=== PATIENT | male | born 1955 | race Caucasian/White ===

== ENCOUNTER 2017-11-09 14:53 | Inpatient (IN) | payer OTHER ==
[~2017-11-09] VITALS: Ht 185.4 cm; Wt 102.1 kg
--- NOTE | ~2017-11-09 | H ---
[facility] [place] [address] HISTORY AND PHYSICAL Name: MELIZA CHAU Room #: 352-P ADM IN M.R.#: [id number] Admission: 11/09/17 Attend Phys: Jean Roman Discharge: Date of : 57 Report #: [id number] THIS REPORT FOR: //name// CC: Juan FRANKLIN unknown DATE OF SERVICE: 11/09/2017 CHIEF COMPLAINT: Nausea, vomiting. HISTORY OF PRESENT ILLNESS: The patient is a 62-year-old gentleman transferred from [facility] for evaluation of persistent nausea and vomiting. All the history is obtained by speaking to his . He suffered what sounds to be an embolic stroke in July of this year. He was initially treated with TPA at [facility], which failed. He then transferred to [facility] and they attempted embolectomy, which he said was unsuccessful as well. Somewhere in that course due to the stroke developed respiratory failure and was placed on the ventilator. He underwent a craniotomy as a result of the stroke while at . He subsequently had a PEG tube placed and after medical stabilization, he then transferred to [facility] for weaning from the ventilator, which was successful. His reports that he was tolerating capping trials at times and was on room air. Around the first week of September, he returned at to have his skull reimplanted for a second surgery. He tolerated that without incident per her report and he then transferred to rehab of [facility]. He was there for about 3 weeks, but was unable to maintain the 3 hours of therapy progress and then transferred to [facility] about a week or 10 days ago. His reports that he has had off and on nausea and vomiting during his stay at both [facility] and [facility]. However, [facility] has reported that he has had vomiting nearly on a daily basis for several days. The nurses also reported that in the last day it appeared to be dark or brown in color. The nurse here at the bedside reported that he vomited when transferring from the stretcher to the hospital bed and appeared more just bile color. PAST MEDICAL HISTORY: As above. PAST SURGICAL HISTORY: As above. FAMILY HISTORY: Unknown. SOCIAL HISTORY: No known chronic alcohol or tobacco use. ALLERGIES: None. MEDICATIONS: Please see the list from the skilled facility. [address] [address] HISTORY AND PHYSICAL Name: MELIZA CHAU Room #: 352-P [facility] IN M.R.#: [id number] Admission: 11/09/17 Attend Phys: Jean Roman Discharge: Date of : 57 Report #: [id number] REVIEW OF SYSTEMS: He is unable to give review. PHYSICAL EXAMINATION: VITAL SIGNS: Per the nursing note. GENERAL: He opens his eyes to his name, but not much other response. HEAD AND NECK: Shows a tracheostomy tube in place. LUNGS: Clear anteriorly. HEART: Regular. ABDOMEN: Soft, normoactive bowel sounds. There is a PEG tube in place. There is a healed right mid abdomen incision with sutures in place. EXTREMITIES: No cyanosis, clubbing or edema. NEUROLOGIC: He has right hemiplegia. ASSESSMENT: 1. Nausea, vomiting. 2. Cerebrovascular disease. 3. Right hemiplegia. 4. Chronic hypoxic respiratory failure. 5. Tracheostomy dependent. PLAN: Continue his basic medications and transfer including his Keppra for seizures. We will ask the GI Service to assess the nausea. He may need an endoscopy or further abdominal imaging. I will ask the Pulmonary Service to follow his stay as well. His does report he has known severe motion sickness symptoms as long as she has known him. So we will see if there is any other acute pathology contributing to his current status. <ELECTRONICALLY SIGNED> By: Leonard He MD 11/10/17 1115 1648 1742 Leonard He MD /nt
--- NOTE | ~2017-11-09 | D ---
[facility] [place] [address] DISCHARGE SUMMARY Name: MELIZA CHAU Room #: 352-P [facility] IN M.R.#: [id number] Admission: 11/09/17 Attend Phys: Jean Roman Discharge: 11/15/17 Date of : 57 Report #: [id number] THIS REPORT FOR: //name// CC: Juan FRANKLIN unknown DATE OF SERVICE: 11/15/2017 FINAL DIAGNOSES: 1. Erosive esophagitis. 2. Chronic hypoxic respiratory failure. 3. Tracheostomy dependent. 4. Cerebrovascular disease. 5. Chronic right hemiparesis. 6. Hypertension. HOSPITAL COURSE: The patient was admitted from [facility] for evaluation of her persistent nausea and vomiting. He was placed on bowel rest with supportive measures. GI Service followed his stay. Ultimately, EGD was performed. This revealed erosive esophagitis. He was treated medically. There were no other signs of bleeding, and he remained stable during the course of his stay. Tube feeding was reinitiated when he was tolerating a without incident. He did have some episodes where he is either coughing or producing up oral secretions that required some oral suctioning, but he had no documented regurgitation of tube feed nor any residuals. PHYSICAL EXAMINATION: GENERAL: On the day of discharge, he was awake, in his usual neurologic state with just minimal response to bedside assessment, which is his baseline: VITAL SIGNS: Temperature was afebrile with a pulse in the 60s. Blood pressure 134/94, ranging to 119/80. O2 sat was 99% on trach shield. LUNGS: Clear. HEART: Regular. ABDOMEN: Soft, normoactive bowel sounds. EXTREMITIES: No edema. DISPOSITION: He will return to his care home facility. I have signed all his transfer orders, medications. He will continue n.p.o. status with tube feeding. Follow up been to the care of Dr. Asif Arroyo. I will repeat his lab work in 3 days. <ELECTRONICALLY SIGNED> By: Leonard He MD 11/23/17 0836 1134 1216 Leonard He MD /nt
[2017-11-09 16:04] VITALS: BP 149/96
[2017-11-09] MEDS ORDERED: REGLAN 10 MG TA10 MG PO (16:17)
[2017-11-09] MEDS ORDERED: ASPIR-TRIN325 MG PO (16:18)
[2017-11-09] MEDS ORDERED: PEPCID20 MG PO (16:19)
[2017-11-09] MEDS ORDERED: KEPPRA750 MG PO (16:19)
[2017-11-09] MEDS ORDERED: POTASSIUM20 PO (16:21)
[2017-11-09] MEDS ORDERED: LIPITOR 20 MG T20 M1 PO (16:21)
[2017-11-09] MEDS ORDERED: TYLENOL325 MG PO (16:22)
[2017-11-09] MEDS ORDERED: ZOFRAN ODT4 MG BUCCAL (16:24)
[2017-11-09] MEDS ORDERED: SENNA8.6 MG PER TUBE (16:25)
[2017-11-09 17:04] LABS: HEMATOCRIT 41.2 % (42.0-52.0); HEMOGLOBIN 13.7 gm/dL (14.0-18.0); MCH 30.8 pg (26.0-34.0); MCHC 33.1 g/dL (28.0-37.0); MCV 93.1 fL (80.0-100.0); RBC 4.43 mil/uL (4.50-6.00); WBC 8.7 thou/uL (4.0-11.0)
[2017-11-09 17:15] LABS: ALBUMIN 3.3 g/dL (3.4-5.0); CALCIUM 9.1 mg/dL (8.5-10.1); CREATININE 0.8 mg/dL (0.7-1.3); POTASSIUM 4.2 mmol/L (3.5-5.1); TOTAL BILIRUBIN 0.3 mg/dL (<0.1-1.0); TOTAL PROTEIN 6.9 g/dL (6.4-8.2)
[2017-11-09 17:34] LABS: BE(vivo) 3.5 mmol/L (-2 to +3); HCO3 27.5 mmol/L (22.0-26.0); PCO2 39.6 mmHg (35.0-45.0); PO2 78.9 mmHg (80.0-100.0); pH 7.459 (7.360-7.450); sO2 96.2 % (92.0-98.0)
[2017-11-09 18:34] LABS: AMYLASE 24 U/L (25-115); LIPASE 66 U/L (73-393)
[2017-11-09 19:02] LABS: HEMATOCRIT 40.5 % (42.0-52.0); HEMOGLOBIN 13.6 gm/dL (14.0-18.0)
[2017-11-09 19:43] VITALS: BP 143/92
[2017-11-10 00:10] VITALS: BP 137/93
[2017-11-10 00:48] LABS: HEMATOCRIT 36.4 % (42.0-52.0); HEMOGLOBIN 11.9 gm/dL (14.0-18.0)
[2017-11-10 04:20] VITALS: BP 139/90
[2017-11-10 07:44] VITALS: BP 141/88
[2017-11-10 12:22] VITALS: BP 138/70
[2017-11-10 16:53] VITALS: BP 131/91
[2017-11-10 20:00] VITALS: BP 123/83
[2017-11-11 04:00] VITALS: BP 137/91
[2017-11-11 08:09] VITALS: BP 141/90
[2017-11-11 16:39] VITALS: BP 145/101
[2017-11-11 19:13] VITALS: BP 124/101
[2017-11-11 23:50] VITALS: BP 132/85
[2017-11-12 03:50] VITALS: BP 129/91
[2017-11-12 06:35] LABS: CALCIUM 9.1 mg/dL (8.5-10.1); CREATININE 0.7 mg/dL (0.7-1.3); POTASSIUM 3.6 mmol/L (3.5-5.1)
[2017-11-12 07:44] VITALS: BP 124/84
[2017-11-12 12:09] VITALS: BP 111/78
[2017-11-12 16:22] VITALS: BP 124/87
[2017-11-12 19:20] VITALS: BP 129/89
[2017-11-13 04:10] VITALS: BP 137/92
[2017-11-13 07:36] VITALS: BP 134/93
[2017-11-13 11:32] VITALS: BP 125/82
[2017-11-13 15:25] VITALS: BP 126/80
[2017-11-13 19:05] VITALS: BP 139/91
[2017-11-14 04:00] VITALS: BP 136/90
[2017-11-14 07:28] VITALS: BP 145/97
[2017-11-14 10:56] LABS: CALCIUM 8.9 mg/dL (8.5-10.1); CREATININE 0.6 mg/dL (0.7-1.3)
[2017-11-14 11:29] VITALS: BP 144/100
[2017-11-14 11:30] VITALS: BP 133/79
[2017-11-14 12:58] LABS: HEMATOCRIT 43.1 % (42.0-52.0); HEMOGLOBIN 14.2 gm/dL (14.0-18.0); MCHC 32.9 g/dL (28.0-37.0); MCV 94.4 fL (80.0-100.0); RBC 4.56 mil/uL (4.50-6.00); RDW 15.5 % (10.5-14.5)
[2017-11-14 15:20] VITALS: BP 138/85
[2017-11-14 19:50] VITALS: BP 121/86
[2017-11-15 04:10] VITALS: BP 119/80
[2017-11-15 07:39] VITALS: BP 135/94
[2017-11-15] MEDS ORDERED: CARVEDILOL12.5 MG PO (11:24)
[2017-11-15] MEDS ORDERED: ANTIVERT25 MG PO (11:25)
[2017-11-15] MEDS ORDERED: KEPPRA 100100 MG/M1 PER TUBE (11:25)
[2017-11-15] MEDS ORDERED: OMEPRAZOLE 20 M20 MG PER TUBE (11:25)
[2017-11-15] MEDS ORDERED: ASPIR 8181 MG PER TUBE (11:25)
[2017-11-15] MEDS ORDERED: METOCLOPRA10 MG/101 PER TUBE (11:26)
== END 2017-11-15 14:35 | DRG 381 ==
LOC: 3W 14:53
PROVIDERS: Internal Medicine Geriatric Medicine; Internal Medicine Pulmonary Disease
PROC: 0DB68ZX Excision of Stomach, Via Natural or Artificial Opening Endoscopic, Diagnostic (ICD-10-PCS; principal; 2017-11-11)
DX: K22.11 Ulcer of esophagus with bleeding (principal); J96.11 Chronic respiratory failure with hypoxia; K57.32 Diverticulitis of large intestine without perforation or abscess without bleeding; E78.5 Hyperlipidemia, unspecified; E11.9 Type 2 diabetes mellitus without complications; D64.9 Anemia, unspecified; I48.91 Unspecified atrial fibrillation; I10 Essential (primary) hypertension; Z93.1 Gastrostomy status; I25.2 Old myocardial infarction; Z86.711 Personal history of pulmonary embolism; Z93.0 Tracheostomy status; Z79.82 Long term (current) use of aspirin; Z79.899 Other long term (current) drug therapy; Z86.718 Personal history of other venous thrombosis and embolism; Z86.73 Personal history of transient ischemic attack (TIA), and cerebral infarction without residual deficits
CPT/HCPCS: 10879; 62110; 62900; 70005

== ENCOUNTER → 2017-11-29 | Outpatient (CLI) | payer OTHER ==
[~2017-11-29] MED LIST: ANTIVERT25 MG PO; ASPIR 8181 MG PER TUBE; ASPIR-TRIN325 MG PO; CARVEDILOL12.5 MG PO; CLONIDINE1 EACH TRANSDERM; HEPARIN 5,5000 UNIT3 SUBQ; HYDRALAZINE 10M10 MG PER TUBE; KEPPRA 100100 MG/M1 PER TUBE; KEPPRA750 MG PER TUBE; KEPPRA750 MG PO; LEVAQUIN 500 M500 M2 PO; LIPITOR 20 MG T20 M1 PO; LISINOPRIL10 MG PER TUBE; METOCLOPRA10 MG/101 PER TUBE; MINERIN CREME454 GM TOP; NORVASC10 MG PER TUBE; NYAMYC15 GM TOP; NYSTOP TOP; OMEPRAZOLE 20 M20 MG PER TUBE; OMEPRAZOLE40 MG PER TUBE; ONDANSETRON HCL4 M2 PO; PACERONE 200 M200 M1 PER TUBE; PEPCID20 MG PO; POTASSIUM20 PO; REGLAN 10 MG TA10 MG PO; SENNA8.6 MG PER TUBE; TRANSDERM-SCOP1 EACH TOP; TYLENOL325 MG PO; VITAL CAL PER TUBE; ZOFRAN ODT4 MG BUCCAL
[2017-11-29 11:55] VITALS: BP 160/104
== END | disposition home or self-care (01) ==
LOC: SPEC 09:06
DX: K94.23 Gastrostomy malfunction (principal); K21.9 Gastro-esophageal reflux disease without esophagitis; I10 Essential (primary) hypertension; I48.92 Unspecified atrial flutter; I48.91 Unspecified atrial fibrillation; E11.9 Type 2 diabetes mellitus without complications; I25.2 Old myocardial infarction; Z98.890 Other specified postprocedural states; Z86.718 Personal history of other venous thrombosis and embolism; Z86.711 Personal history of pulmonary embolism; Z79.01 Long term (current) use of anticoagulants; Z86.73 Personal history of transient ischemic attack (TIA), and cerebral infarction without residual deficits; Z79.899 Other long term (current) drug therapy; Z79.82 Long term (current) use of aspirin

== ENCOUNTER 2017-12-10 05:34 | Inpatient (IN) | payer OTHER ==
[~2017-12-10] VITALS: Ht 185.4 cm; Wt 104.3 kg
--- NOTE | ~2017-12-10 | O ---
[facility] [place] [address] OPERATIVE REPORT Name: MELIZA CHAU Room #: 456-P [facility] [place].#: [id number] Admission: 12/10/17 Attend Phys: Phillip Mireles MD Discharge: Date of : 57 Report #: [id number] THIS REPORT FOR: //name// CC: Asif Mireles DATE OF SERVICE: 12/10/2017 PREOPERATIVE DIAGNOSES: Status post cerebrovascular accident, status post PEG placement with persistent nausea and vomiting needing J-tube placement. POSTOPERATIVE DIAGNOSES: Status post cerebrovascular accident, status post PEG placement with persistent nausea and vomiting needing J-tube placement. PROCEDURES PERFORMED: Laparoscopic J-tube placement. ANESTHESIA: General. SURGEON: Phillip Mireles MD. COMPLICATIONS: None. ESTIMATED BLOOD LOSS: 5 mL. DESCRIPTION OF PROCEDURE: With the patient under general anesthesia, his trach which cuffless was changed to a cuffed trach for the surgery that was performed by myself without difficulty. Abdomen was then prepped and draped in sterile fashion. IV antibiotic was administered. Timeout was performed. A 2-cm curvilinear incision was made infraumbilically, fascia identified. Fascia was then grasped with hemostats and then opened under visualization. 0 Vicryl suture was placed on the fascia edges for retraction. Veress needle was then placed through the abdominal cavity and the insufflation was started with CO2. The insufflation did not seem to create air diffusely. It turned out that the needle was in the properitoneal space. With the 10-mm scope placed in a viewing trocar, I was able to go through the defect between the fascia that I already opened through the peritoneum. Bowel was identified underneath this. CO2 was then placed through the 11-mm trocar. The abdominal cavity at that point distended up nicely. A 5-mm trocar was placed in the epigastrium and another 5-mm trocar placed in the left lower quadrant fairly close to the umbilical level. A 5-mm scope was then used. This then showed the initial CO2 placement in the properitoneal fat, which the patient did have a fairly generous . No harm to underlying tissue. The small bowel was examined. The ligament of Treitz was found. Small bowel about a foot and a half distal to the ligament of Treitz was used for jejunostomy tube. On the skin side, a dalton shaped was drawn out for the T-fasteners. The center part of it was drawn for the tube [facility] [address] [place] [address] OPERATIVE REPORT Name: MELIZA CHAU Room #: 456-P [facility] M.R.#: [id number] Admission: 12/10/17 Attend Phys: Phillip Mireles MD Discharge: Date of : 57 Report #: [id number] insertion. The T-fasteners were placed without difficulty started at the distal corner in the midline of the antimesenteric surface of bowel and at the 3 and 9 o'clock position of the dalton. This was placed in lateral wall and the T-fasteners all went in without difficulty. The T-fastener did not pop through anything. A fourth T-fastener was then placed at 6 o'clock position. With the bowel lifted anteriorly and the CO2 in the abdominal cavity reduced, a small incision was made with 11 blade. The introducer needle was then placed through rest of the wall and under visualization placed into the bowel. With the bowel pulled up with the T-fasteners, I was pretty certain that that that was in the bowel lumen. I injected air through the needle and the small bowel did distend up well. Unfortunately, the bowel that was distended up did not stay distended because of the movement of the air downstream. I couple times to make sure that needle was placed in the lumen. Wire was then placed down. I was able to get the wire down through the needle about 4 inches downstream, but then I could not manipulate the wire to go down any further. A serial dilator was then used. This dilated the skin and subcutaneous tissue, the wall and then the opening in the jejunum. After serial dilatation, the Peel-Apart sheath was then left in the bowel and the dilator was removed. The feeding tube was then placed inside the Peel-Apart sheath. The J-tube was held in place and the Peel-Apart sheath was divided. This left the bowel in the jejunum. I could see the tip of the feeding tube and again I did try to maneuver it further downstream. There was a loop proximally. This was pulled back and I thought it had straightened out, but then every time I tried to advanced it, that loop persisted. At this point, I decided just to leave the bowel in this location, let the peristalsis take it further down on its own. When I ran the small bowel, I was pretty certain that with the angle of the T-fasteners down pointing into the distal direction. The CO2 was then let down and the jejunum was then pulled up against the abdominal wall and the T-fastener was then tightened down using the locking device. I could see the jejunum sealing around the J-tube. A dye was then placed inside the jejunostomy feeding port and the dye was injected under fluoroscopy. I can see the dye within the lumen of the bowel. Again, there is a proximal loop that is about 4 inches in length. Likely this loop was straightened out with peristalsis. There is a buttress or support button on the tube. This was slid down to the skin level. 0 silk was tied on this button to secure it to the feeding tube that it is wrapping around. Then, 2-0 nylon suture was then used to fasten down the buttress at 3 separate sites. Saline was used to flush through the tube and there is no resistance flushing the tube. The fascial defect of the umbilicus was then closed with [id number] 0 Vicryl. Skin was irrigated, closed with 5-0 PDS. Steri-Strip and Band-Aids applied to laparoscopic port site. 4 x 4 was then placed over the J-tube site and the tube was then coiled and held in place by 2 medium Op-Site. The patient tolerated the procedure well and taken to recovery room. In the recovery room, the cuffed trach was then changed out to a new cuffless trach. The patient tolerated that procedure well. The patient's PEG tube was left in place. I have concern about giving medications through the J-tube. Since the J-tube is 12-Omani smaller than the PEG tube, I am afraid that the medication which is [address] [address] OPERATIVE REPORT Name: MELIZA CHAU Room #: 456-P [facility] M.R.#: [id number] Admission: 12/10/17 Attend Phys: Phillip Mireles MD Discharge: Date of : 57 Report #: [id number] being crushed will clog up the tubing. I recommend at this point keep giving him his pills through the PEG tube with a little bit of water. He should be able to start feedings tomorrow. At the end of the procedure, Charisse, his was called and procedure discussed with her. By: 2215 2350 Phillip Mireles MD /nt
--- NOTE | ~2017-12-10 | EKG ---
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: STEPH : 1955 Requested By: Phillip Mireles Order Number: [id number] MD: Won Hensley Measurements Intervals [place] Rate: 69 P: 55 [place]: QRS: -16 QRSD: 105 T: 12 QT: 412 QTc: 442 Interpretive Statements Normal sinus rhythm Borderline repolarization abnormality Artifact in lead(s) I,II,III,aVR,aVL,aVF,V1,V2 No previous ECG available for comparison Electronically Signed On 12-10-2017 16:28:27 CDT by Won Hensley [email or web address] <ELECTRONICALLY SIGNED> By: Won Hensley MD, [facility] 12/10/17 1628 1020 1020 Won Hensley MD, [facility] /EPI
[~2017-12-10 05:34] MED LIST changes: -CLONIDINE1 EACH TRANSDERM; -LEVAQUIN 500 M500 M2 PO
[2017-12-10 11:25] VITALS: BP 137/87
[2017-12-10 15:58] VITALS: BP 129/91
[2017-12-10 19:29] VITALS: BP 119/86
[2017-12-11 04:43] VITALS: BP 121/87
[2017-12-11 08:26] VITALS: BP 124/73
[2017-12-11 16:24] VITALS: BP 117/66
[2017-12-11 21:20] VITALS: BP 134/79
[2017-12-12 05:12] VITALS: BP 151/97
[2017-12-12 07:51] VITALS: BP 124/91
[2017-12-12 15:50] VITALS: BP 113/79
[2017-12-12 20:30] VITALS: BP 136/73
[2017-12-13 05:04] VITALS: BP 108/69
[2017-12-13 08:20] VITALS: BP 123/86
[2017-12-13 15:45] VITALS: BP 117/62
[2017-12-13 20:50] VITALS: BP 109/70
[2017-12-14 03:50] VITALS: BP 138/80
[2017-12-14 07:38] VITALS: BP 121/79
[2017-12-14 15:13] VITALS: BP 119/74
== END 2017-12-14 18:30 | DRG 65 ==
LOC: TBA 05:34 → OR 05:34 → 4W 15:38 → OR 15:39 → 4W 15:39
PROC: 0DHA3UZ Insertion of Feeding Device into Jejunum, Percutaneous Approach (ICD-10-PCS; principal; 2017-12-10)
DX: I63.9 Cerebral infarction, unspecified (principal); G81.91 Hemiplegia, unspecified affecting right dominant side; J96.10 Chronic respiratory failure, unspecified whether with hypoxia or hypercapnia; I25.10 Atherosclerotic heart disease of native coronary artery without angina pectoris; I48.91 Unspecified atrial fibrillation; R11.2 Nausea with vomiting, unspecified; Z79.82 Long term (current) use of aspirin; Z79.899 Other long term (current) drug therapy
CPT/HCPCS: 10047; 50010; 50101; 50411; 50555; 50558; 53307; 53310; 56524; 56525; 56526; 57144; 57145; 62110; 62900; 70005

== ENCOUNTER 2018-01-11 13:13 | Inpatient (IN) | payer OTHER ==
[~2018-01-11] VITALS: Ht 185.4 cm; Wt 94.8 kg
--- NOTE | ~2018-01-11 | H ---
[facility] [place] [address] HISTORY AND PHYSICAL Name: MELIZA CHAU Room #: 352-P ADM IN M.R.#: [id number] Admission: 01/11/18 Attend Phys: Jean Roman Discharge: Date of : 57 Report #: [id number] THIS REPORT FOR: //name// CC: Juan Arroyo DATE OF SERVICE: 01/11/2018 CHIEF COMPLAINT: PEG tube malfunction. HISTORY OF PRESENT ILLNESS: The patient is a 62-year-old gentleman from [facility]. He was admitted to the hospital for evaluation of his feeding tube. In July of this year, he suffered an embolic stroke per the reports, which has left him with significant right hemiparesis, aphasia, dysphagia and respiratory failure. Somewhere along the way, he was able to wean from the ventilator and spent some time in various rehab units and/or LTAC facilities. He initially was treated with TPA at [facility] and then transferred to for an attempted embolectomy. At , he had a PEG tube placed. Previously, he had had difficulties with persistent nausea and vomiting and had difficulty tolerating his tube feeding. He was admitted here in November for nausea, vomiting. At that point, GI service adjusted the tube feed product rate and added antiemetics including Reglan, which seemed to control the symptoms. He then transferred back to his skilled facility where he had clog of the tube. This required another admission earlier in December of this year where he had a surgically placed J feeding tube by Dr. Mireles. Now apparently, the feeding tube in the right mid abdomen has developed a rupture in the tube itself and is nonfunctioning. He is admitted to have it replaced. The other concern at this point is whether he can wean from the tracheostomy tube and be decannulated. PAST MEDICAL HISTORY: Cerebrovascular accident with failed embolectomy in July of this year, right hemiparesis, aphasia, dysphagia, chronic respiratory failure, tracheostomy dependent, hypertension. He has had complications with his feeding tubes. PAST SURGICAL HISTORY: Unknown. FAMILY HISTORY: Unknown. SOCIAL HISTORY: Unknown other than he was . ALLERGIES: Unknown. MEDICATIONS: Please see the nursing list. REVIEW OF SYSTEMS: He is unable to give a review. OBJECTIVE: [address] [address] HISTORY AND PHYSICAL Name: MELIZA CHAU Room #: 352-P [facility] IN M.R.#: [id number] Admission: 01/11/18 Attend Phys: Jean Roman Discharge: Date of : 57 Report #: [id number] VITAL SIGNS: Temperature 37, pulse 79, respirations 19, blood pressure 161/102. GENERAL: He is asleep, but opens his eyes, resting in bed. He moves his left arm to shake hands. HEAD AND NECK: Unremarkable other than trach tube in place. LUNGS: Clear. HEART: Regular. ABDOMEN: Soft, normoactive bowel sounds. EXTREMITIES: There is a 3-port feeding tube in the right upper mid abdomen labeled a GJ tube. There is a second feeding tube in the left mid abdomen that is labeled as a J-tube. EXTREMITIES: Show no edema. NEUROLOGIC: He has right hemiparalysis. LABORATORY REVIEW: ABG, chemistry, CBC were unremarkable. KUB notes the presence of an IVC filter. There is a J-tube in the left lower quadrant. Chest x-ray shows some atelectasis. ASSESSMENT: 1. Malfunctioning feeding tube. 2. Chronic hypoxic respiratory failure. 3. Tracheostomy tube dependent. 4. Cerebrovascular disease with prior stroke in July of this year. 5. Right hemiplegia. 6. Chronic aphasia. 7. Chronic dysphagia. 8. Hypertension. PLAN: For now, he will be n.p.o. with no tube feeding. I have asked Dr. Mireles to reassess the tube. Speaking to the skilled nursing, it appears that the tubing split while they were trying to flush his tube feeding. Medicines will be held. I have ordered IV Keppra and we will order some IV patch, any antihypertensive medication pending replacement of a working feeding tube. The other concern at this point is whether he can be decannulated. I will ask the Pulmonary service to see him. <ELECTRONICALLY SIGNED> By: Leonard He MD 01/12/18 0847 1653 1722 Leonard He MD /nt
--- NOTE | ~2018-01-11 | D ---
[facility] [place] [address] DISCHARGE SUMMARY Name: MELIZA CHAU Room #: 352-P [facility] IN M.R.#: [id number] Admission: 01/11/18 Attend Phys: Jean Roman Discharge: Date of : 57 Report #: [id number] THIS REPORT FOR: //name// CC: Juan Arroyo FINAL DIAGNOSES: 1. PEG tube malfunction. 2. Chronic hypoxic respiratory failure. 3. Tracheostomy dependence. 4. Hypertension. 5. Cerebrovascular disease. 6. Chronic right hemiplegia. 7. Hypokalemia. 8. Aphasia. 9. Dysphagia. HOSPITAL COURSE: The patient was admitted for evaluation of a nonfunctioning PEG tube, which has a gastric and jejunostomy port. Unfortunately, the tube split and was nonfunctional Dr. Mireles arranged for Interventional Radiology to exchange both tubes as he has an old jejunostomy tube as well. Please see the separately dictated IR report. He was tolerating tube feed without incident. POSTPROCEDURE: Medications were adjusted to a clonidine patch to try to avoid medications being put through the tube in hopes of reducing the risk of problems in the future. This seemed to control his blood pressure. Pulmonary Service followed him as well. They did not feel that he was a candidate for decannulation at this point as his mental status was marginal along with a weak cough and still nonverbal, even with a Passy-Seale valve. PHYSICAL EXAMINATION: GENERAL: On the day of discharge, he was resting in bed. VITAL SIGNS: Temperature 37, pulse 51, respirations blood pressure 136/85 and O2 sat 100% on humidified trach air. LUNGS: Clear. HEART: Regular. ABDOMEN: Soft, normoactive bowel sounds. EXTREMITIES: No edema. DISPOSITION: He will return to his Nursing Center with a DuoNeb, amiodarone, Lipitor, clonidine patch, lisinopril 10 mg twice a day, along with aspirin and Keppra 750 mg b.i.d. and scopolamine patch and Reglan 5 mg q.i.d. <ELECTRONICALLY SIGNED> By: Leonard He MD 01/14/18 1607 1158 1301 Leonard He MD /nt
[2018-01-11 14:12] VITALS: BP 148/104
[2018-01-11 15:24] LABS: HEMATOCRIT 39.5 % (42.0-52.0); HEMOGLOBIN 13.9 gm/dL (14.0-18.0); MCH 31.1 pg (26.0-34.0); MCHC 35.3 g/dL (28.0-37.0); MCV 88.2 fL (80.0-100.0); RBC 4.47 mil/uL (4.50-6.00); RDW 14.6 % (10.5-14.5); WBC 7.8 thou/uL (4.0-11.0)
[2018-01-11 15:30] LABS: CALCIUM 8.9 mg/dL (8.5-10.1); CREATININE 0.9 mg/dL (0.7-1.3); POTASSIUM 3.5 mmol/L (3.5-5.1)
[2018-01-11 15:49] VITALS: BP 157/102
[2018-01-11 16:42] LABS: BE(vivo) 5.4 mmol/L (-2 to +3); HCO3 29.8 mmol/L (22.0-26.0); PCO2 42.8 mmHg (35.0-45.0); PO2 79.7 mmHg (80.0-100.0); pH 7.461 (7.360-7.450); sO2 96.3 % (92.0-98.0)
[2018-01-11 19:06] VITALS: BP 135/85
[2018-01-11 23:48] VITALS: BP 122/82
[2018-01-12 03:55] VITALS: BP 127/90
[2018-01-12 08:23] VITALS: BP 115/85
[2018-01-12 17:31] VITALS: BP 133/85
[2018-01-12 20:00] VITALS: BP 147/95
[2018-01-13] VITALS (11 sets, daily range): BP systolic 117–169; BP diastolic 83–896
[2018-01-13 06:07] LABS: CALCIUM 8.3 mg/dL (8.5-10.1); CREATININE 0.9 mg/dL (0.7-1.3); POTASSIUM 3.3 mmol/L (3.5-5.1)
[2018-01-14 04:50] VITALS: BP 125/82
[2018-01-14 06:29] LABS: CALCIUM 8.2 mg/dL (8.5-10.1); CREATININE 0.7 mg/dL (0.7-1.3)
[2018-01-14 07:32] VITALS: BP 138/86
[2018-01-14 11:00] VITALS: BP 136/85
[2018-01-14] MEDS ORDERED: CLONIDINE1 EACH TRANSDERM (11:20)
[2018-01-14] MEDS ORDERED: METOCLOPRA10 MG/101 PER TUBE (11:21)
[2018-01-14] MEDS ORDERED: PACERONE 200 M200 M1 PER TUBE (11:58)
[2018-01-14] MEDS ORDERED: LISINOPRIL10 MG PER TUBE ×2 (11:58→16:09)
[2018-01-14] MEDS ORDERED: LIPITOR 20 MG T20 M1 PO (11:58)
[2018-01-14 15:57] VITALS: BP 133/83
[2018-01-14 19:39] VITALS: BP 126/71
[2018-01-15 04:20] VITALS: BP 126/87
[2018-01-15 07:46] VITALS: BP 141/86
[2018-01-15 12:11] VITALS: BP 140/89
[2018-01-15 16:47] VITALS: BP 126/83
[2018-01-15 19:39] VITALS: BP 135/88
[2018-01-16 05:11] VITALS: BP 177/85
[2018-01-16 07:42] VITALS: BP 129/86
[2018-01-16 11:28] VITALS: BP 133/86
[2018-01-16 15:13] VITALS: BP 133/87
[2018-01-16 19:25] VITALS: BP 138/90
[2018-01-17 04:20] VITALS: BP 140/88
[2018-01-17 08:27] VITALS: BP 95/64
[2018-01-17] MEDS ORDERED: LEVAQUIN 500 M500 M2 PO (09:16)
[2018-01-17 11:04] VITALS: BP 142/99
[2018-01-17 15:20] VITALS: BP 125/87
[2018-01-17 19:15] VITALS: BP 151/91
[2018-01-18 03:45] VITALS: BP 125/91
[2018-01-18 07:55] VITALS: BP 139/92
[2018-01-18 12:43] VITALS: BP 132/89
[2018-01-18 17:24] VITALS: BP 136/86
[2018-01-18 19:20] VITALS: BP 126/80
[2018-01-19 03:20] VITALS: BP 135/80
[2018-01-19 07:56] VITALS: BP 137/87
[2018-01-19 12:23] VITALS: BP 118/74
[2018-01-19 15:23] VITALS: BP 133/86
[2018-01-19 19:55] VITALS: BP 130/82
[2018-01-20 04:17] VITALS: BP 127/80
[2018-01-20 06:44] LABS: CALCIUM 8.6 mg/dL (8.5-10.1); CREATININE 0.8 mg/dL (0.7-1.3); POTASSIUM 4.1 mmol/L (3.5-5.1)
[2018-01-20 08:42] VITALS: BP 127/78
[2018-01-20] MEDS ORDERED: LEVAQUIN 500 M500 M2 PO (10:24)
[2018-01-20 12:16] VITALS: BP 137/88
[2018-01-20 17:15] VITALS: BP 127/77
[2018-01-20 19:30] VITALS: BP 141/85
[2018-01-21 03:40] VITALS: BP 123/85
[2018-01-21 07:46] VITALS: BP 126/89
[2018-01-21 11:50] VITALS: BP 111/78
[2018-01-21 16:25] VITALS: BP 122/74
[2018-01-21 19:49] VITALS: BP 120/80
[2018-01-22 03:33] VITALS: BP 111/76
[2018-01-22 07:24] VITALS: BP 101/70
[2018-01-22 12:34] VITALS: BP 106/69
[2018-01-22 15:56] VITALS: BP 94/50
[2018-01-22 18:55] VITALS: BP 105/72
[2018-01-23 03:34] VITALS: BP 118/80
[2018-01-23 07:40] VITALS: BP 129/83
[2018-01-23 11:37] VITALS: BP 142/87
[2018-01-23 16:26] VITALS: BP 130/82
[2018-01-23 20:07] VITALS: BP 129/86
[2018-01-24 03:15] VITALS: BP 124/82
[2018-01-24 07:51] VITALS: BP 113/69
[2018-01-24 11:51] VITALS: BP 100/67
[2018-01-24] MEDS ORDERED: KEPPRA 100100 MG/M1 PER TUBE (13:46)
[2018-01-24 16:33] VITALS: BP 106/74
[2018-01-24 19:40] VITALS: BP 114/77
[2018-01-24 23:47] VITALS: BP 118/80
[2018-01-25 03:58] VITALS: BP 120/80
[2018-01-25 05:43] LABS: HEMATOCRIT 33.5 % (42.0-52.0); HEMOGLOBIN 11.5 gm/dL (14.0-18.0); MCH 31.7 pg (26.0-34.0); MCHC 34.5 g/dL (28.0-37.0); MCV 91.9 fL (80.0-100.0); RBC 3.64 mil/uL (4.50-6.00); RDW 14.6 % (10.5-14.5); WBC 6.5 thou/uL (4.0-11.0)
[2018-01-25 05:53] LABS: CALCIUM 8.3 mg/dL (8.5-10.1); CREATININE 0.8 mg/dL (0.7-1.3); POTASSIUM 4.2 mmol/L (3.5-5.1)
[2018-01-25 07:50] VITALS: BP 128/90
[2018-01-25 11:48] VITALS: BP 132/85
[2018-01-25 15:57] VITALS: BP 123/80
[2018-01-25 19:17] VITALS: BP 148/87
[2018-01-26 03:53] VITALS: BP 135/94
[2018-01-26 07:58] VITALS: BP 147/93
[2018-01-26 11:36] VITALS: BP 131/85
[2018-01-26 16:05] VITALS: BP 141/89
[2018-01-26 19:10] VITALS: BP 136/88
[2018-01-27 04:10] VITALS: BP 123/79
[2018-01-27 08:07] VITALS: BP 126/90
[2018-01-27 13:09] VITALS: BP 130/89
[2018-01-27 19:50] VITALS: BP 122/78
[2018-01-28 03:35] VITALS: BP 129/91
[2018-01-28 05:13] LABS: HEMATOCRIT 34.9 % (42.0-52.0); HEMOGLOBIN 12.1 gm/dL (14.0-18.0); MCH 31.7 pg (26.0-34.0); MCHC 34.7 g/dL (28.0-37.0); MCV 91.5 fL (80.0-100.0); RBC 3.82 mil/uL (4.50-6.00); RDW 14.6 % (10.5-14.5); WBC 6.5 thou/uL (4.0-11.0)
[2018-01-28 05:26] LABS: CALCIUM 8.4 mg/dL (8.5-10.1); CREATININE 0.7 mg/dL (0.7-1.3); POTASSIUM 4.1 mmol/L (3.5-5.1)
[2018-01-28 07:25] VITALS: BP 125/87
== END 2018-01-28 14:38 | DRG 394 ==
LOC: 3W 13:13
PROVIDERS: Internal Medicine Geriatric Medicine
PROC: 0D2DXUZ Change Feeding Device in Lower Intestinal Tract, External Approach (ICD-10-PCS; principal; 2018-01-13)
DX: K94.23 Gastrostomy malfunction (principal); J96.11 Chronic respiratory failure with hypoxia; I69.351 Hemiplegia and hemiparesis following cerebral infarction affecting right dominant side; I10 Essential (primary) hypertension; E87.6 Hypokalemia; R13.10 Dysphagia, unspecified; Z79.899 Other long term (current) drug therapy; I69.320 Aphasia following cerebral infarction; Z93.0 Tracheostomy status
CPT/HCPCS: 10779

== ENCOUNTER 2018-06-07 09:09 | Emergency (ER) | payer OTHER ==
[~2018-06-07] VITALS: Ht 177.8 cm; Wt 77.1 kg
[~2018-06-07 09:09] MED LIST changes: +CLONIDINE1 EACH TRANSDERM; +LEVAQUIN 500 M500 M2 PO
[2018-06-07 11:43] VITALS: BP 139/86
== END 2018-06-07 11:50 ==
LOC: ER 09:09
DX: Z43.0 Encounter for attention to tracheostomy (principal)

== ENCOUNTER 2018-06-13 14:15 | Emergency (ER) | payer OTHER ==
[~2018-06-13] VITALS: Ht 177.8 cm; Wt 77.1 kg
[2018-06-13 17:01] VITALS: BP 133/84
== END 2018-06-13 17:13 | disposition home or self-care (01) ==
LOC: ER 14:15
DX: J95.09 Other tracheostomy complication (principal); K21.9 Gastro-esophageal reflux disease without esophagitis; I48.91 Unspecified atrial fibrillation; I10 Essential (primary) hypertension; Z86.73 Personal history of transient ischemic attack (TIA), and cerebral infarction without residual deficits; Z86.718 Personal history of other venous thrombosis and embolism; Y83.8 Other surgical procedures as the cause of abnormal reaction of the patient, or of later complication, without mention of misadventure at the time of the procedure; Y82.8 Other medical devices associated with adverse incidents

== ENCOUNTER 2018-06-18 22:25 | Inpatient (IN) | payer OTHER ==
[~2018-06-18] VITALS: Ht 177.8 cm; Wt 78.9 kg
[2018-06-18 22:27] VITALS: BP 165/90
[2018-06-19 00:08] LABS: HEMATOCRIT 40.6 % (42.0-52.0); HEMOGLOBIN 13.7 gm/dL (14.0-18.0); MCHC 33.7 g/dL (28.0-37.0); RBC 4.41 mil/uL (4.50-6.00); RDW 13.6 % (10.5-14.5); WBC 7.6 thou/uL (4.0-11.0)
[2018-06-19 00:22] LABS: CALCIUM 9.2 mg/dL (8.5-10.1); CREATININE 0.7 mg/dL (0.7-1.3); POTASSIUM 4.3 mmol/L (3.5-5.1)
[2018-06-19 00:45] LABS: APTT 26.8 Seconds (24.5-32.8); PROTIME 10.2 Seconds (9.3-11.4)
[2018-06-19 00:51] VITALS: BP 156/103
[2018-06-19] MEDS ORDERED: ZOLOFT50 MG PO (01:03)
[2018-06-19] MEDS ORDERED: XARELTO20 MG PO (01:03)
[2018-06-19 01:15] VITALS: BP 136/91
[2018-06-19 01:56] VITALS: BP 149/98
[2018-06-19 06:53] VITALS: BP 147/93
[2018-06-19 14:22] VITALS: BP 138/96
[2018-06-19 19:19] VITALS: BP 134/79
[2018-06-20 04:48] VITALS: BP 148/87
[2018-06-20 07:20] VITALS: BP 148/87
[2018-06-20 14:35] VITALS: BP 155/76
[2018-06-20 19:33] VITALS: BP 149/102
[2018-06-21 03:42] VITALS: BP 146/95
[2018-06-21 05:29] LABS: HEMATOCRIT 38.2 % (42.0-52.0); HEMOGLOBIN 12.5 gm/dL (14.0-18.0); MCH 30.2 pg (26.0-34.0); MCHC 32.7 g/dL (28.0-37.0); MCV 92.2 fL (80.0-100.0); RBC 4.15 mil/uL (4.50-6.00); RDW 13.8 % (10.5-14.5)
[2018-06-21 08:10] VITALS: BP 155/101
[2018-06-21 11:40] VITALS: BP 139/57
[2018-06-21 15:55] VITALS: BP 173/88
[2018-06-21 19:12] VITALS: BP 150/94
[2018-06-21 19:51] VITALS: BP 153/53
[2018-06-22 04:30] VITALS: BP 120/78
[2018-06-22 07:40] VITALS: BP 141/92
== END 2018-06-22 15:33 | DRG 394 ==
LOC: ER 22:25 → EROBS 06-19 00:46 → 4W 06-19 00:46
PROVIDERS: Emergency Medicine; Nurse Practitioner
PROC: 0D20XUZ Change Feeding Device in Upper Intestinal Tract, External Approach (ICD-10-PCS; principal; 2018-06-21)
DX: K94.23 Gastrostomy malfunction (principal); J95.03 Malfunction of tracheostomy stoma; J96.10 Chronic respiratory failure, unspecified whether with hypoxia or hypercapnia; I48.92 Unspecified atrial flutter; I69.351 Hemiplegia and hemiparesis following cerebral infarction affecting right dominant side; Y83.8 Other surgical procedures as the cause of abnormal reaction of the patient, or of later complication, without mention of misadventure at the time of the procedure; K21.9 Gastro-esophageal reflux disease without esophagitis; F32.9 Major depressive disorder, single episode, unspecified; G40.909 Epilepsy, unspecified, not intractable, without status epilepticus; Y83.3 Surgical operation with formation of external stoma as the cause of abnormal reaction of the patient, or of later complication, without mention of misadventure at the time of the procedure; I48.91 Unspecified atrial fibrillation; I10 Essential (primary) hypertension; Z86.711 Personal history of pulmonary embolism; I25.2 Old myocardial infarction; Z86.718 Personal history of other venous thrombosis and embolism; Y92.89 Other specified places as the place of occurrence of the external cause; Z79.01 Long term (current) use of anticoagulants; Z79.82 Long term (current) use of aspirin; Z79.899 Other long term (current) drug therapy
CPT/HCPCS: 10040; 10045

== ENCOUNTER 2020-02-27 13:28 | Inpatient (IN) | payer OTHER ==
[~2020-02-27] VITALS: Ht 185.4 cm; Wt 102.8 kg
[~2020-02-27 13:28] MED LIST changes: +SERTRALINE HCL50 MG PER TUBE; +XARELTO20 MG PO
[2020-02-27 13:30] VITALS: BP 115/81
--- NOTE | 2020-02-27 13:45 | NUR ---
IV TEAM PAGED AND THEY WILL BE HERE SHORTLY FOR LINE AND LABS
[2020-02-27 13:51] LABS: ABSOLUTE NEUTROPHILS 15.4 thou/uL (1.4-8.2); BASOPHILS 0.4 % (0.0-2.0); EOSINOPHILS 0.1 % (0.0-3.0); HEMATOCRIT 48.4 % (42.0-52.0); HEMOGLOBIN 15.4 gm/dL (14.0-18.0); LYMPHOCYTES 4.2 % (24.0-44.0); MCH 31.5 pg (26.0-34.0); MCHC 31.9 g/dL (28.0-37.0); MCV 98.6 fL (80.0-100.0); MONOCYTES 1.9 % (1.0-8.0); POLYS 93.4 % (36.0-66.0); RBC 4.91 mil/uL (4.50-6.00); RDW 16.5 % (10.5-14.5); WBC 16.5 thou/uL (4.0-11.0)
[2020-02-27 14:14] LABS: URINE BILIRUBIN NEGATIVE (Negative); URINE BLOOD 3+ (Negative); URINE CLARITY CLEAR; URINE COLOR YELLOW; URINE GLUCOSE-RANDOM* 3+ (Negative); URINE KETONES NEGATIVE (Negative); URINE LEUKOCYTES-REFLEX NEGATIVE (Negative); URINE NITRITE-REFLEX NEGATIVE (Negative); URINE PROTEIN (DIPSTICK) NEGATIVE (Negative); URINE UROBILINOGEN 0.2 E.U./dl (0.2-1.0)
[2020-02-27 14:20] LABS: ALBUMIN 2.6 g/dL (3.4-5.0); CREATININE 1.3 mg/dL (0.7-1.3); DIRECT BILIRUBIN 0.2 mg/dL (<0.1-0.2); POTASSIUM 3.6 mmol/L (3.5-5.1); TOTAL PROTEIN 5.9 g/dL (6.4-8.2)
[2020-02-27 14:26] LABS: BE(vivo) 8.2 mmol/L (-2 to +3); HCO3 32.3 mmol/L (22.0-26.0); PCO2 42.3 mmHg (35.0-45.0); PO2 70.4 mmHg (80.0-100.0); pH 7.501 (7.360-7.450); sO2 95.4 % (92.0-98.0)
[2020-02-27 14:31] LABS: BACTERIA-REFLEX 1-9 Few /HPF (None Seen); CASTS None Seen /LPF (None Seen); CRYSTALS None Seen /LPF (None Seen); SQUAMOUS None Seen /LPF (0-3); URINE WBC-REFLEX 0-5 Rare /HPF (0-5)
[2020-02-27 15:05] LABS: PLATELET COUNT 91 thou/uL (150-400)
--- NOTE | 2020-02-27 15:06 | NUR ---
VAT CONSULTED FOR A CL FOR POSS SEPSIS AND PT UNRESPONSIVE. A 5FRTL PLACED LT IJ AND CXR REVEALS TIP IN SVC AND READY FOR USE. PLEASE SEE NI FOR DETAILS
--- NOTE | 2020-02-27 16:08 | EKG ---
[facility] [place] [address] ELECTROCARDIOGRAM REPORT Name: MANOLOSEBASTIEN COLON Room #: REG M..#: [id number] Admission: 02/27/20 Attend Phys: Discharge: Date of : 57 Report #: [id number] THIS REPORT FOR: cc: Becka Zee MD, Joy E. MD Couchonnal, Luis F. MD ~ THIS REPORT FOR: //name// [facility] ED Test Date: 2020-02-27 Test Time: 13:47:08 Pat Name: SEBASTIEN CHAU Department: Room: Gender: Specialist Wound Care: : 1955 Requested By: Sebastien Lewis Order Number: [id number] MD: David Metcalf Measurements Intervals [place] Rate: 120 P: 45 [place]: 122 QRS: -38 QRSD: 80 T: 169 QT: 339 QTc: 479 Interpretive Statements Sinus tachycardia Multiform ventricular premature complexes Left axis deviation Compared to ECG 12/10/2017 10:20:16 Electronically Signed On 02-27-2020 16:08:24 CDT by David Metcalf [email or web address] <ELECTRONICALLY SIGNED> By: David Metcalf MD 02/27/20 1608 1347 1347 David Metcalf MD /EPI
--- NOTE | 2020-02-27 20:55 | NUR ---
[facility] CONTACTED ABOUT PT'S CRITICAL LAB (LACTIC 4.7). ORDER TO CONTINUE MAINTAINANCE FLUID, ABT THERAPY AND MONITOR FOR ANY CHANGES.
[2020-02-27 23:11] VITALS: BP 104/70
[2020-02-27 23:18] VITALS: BP 104/70
[2020-02-28] VITALS (33 sets, daily range): BP systolic 80–103; BP diastolic 43–70
[2020-02-28 01:22] LABS: HEMATOCRIT 44.1 % (42.0-52.0); HEMOGLOBIN 14.1 gm/dL (14.0-18.0); MCH 31.7 pg (26.0-34.0); MCHC 32.1 g/dL (28.0-37.0); MCV 98.8 fL (80.0-100.0); RBC 4.47 mil/uL (4.50-6.00); RDW 16.1 % (10.5-14.5); WBC 13.6 thou/uL (4.0-11.0)
[2020-02-28 01:26] LABS: CALCIUM 7.6 mg/dL (8.5-10.1); CREATININE 1.4 mg/dL (0.7-1.3)
[2020-02-28 01:28] LABS: POTASSIUM 2.6 mmol/L (3.5-5.1)
--- NOTE | 2020-02-28 03:20 | NUR ---
PT ARRIVED AT 0035 ACCOMPANIED BY ED STAFF. PT LETHARGIC, ABLE TO MOVE LEFT UPPER EXTREMETY ONLY. PERRLA. UNABLE TO FOLLOW COMMANDS. PT SR INITIALLY WITH FREQUENT PVCs. LABS DRAWN EARLY TO GET BASELINE ON PT. CRITICAL RESULTS COMMUNICATED TO PUBLIC HEALTH ENGINEER AT 0134. AT 0242 PT HAVING FREQUENT RUNS OF A-FIB WITH RVR RATE 140-180s. EKG RESULTS COMMUNICATED TO PUBLIC HEALTH ENGINEER AT 0309. ORDERS GIVEN. WILL CONTINUE TO MONITOR PT.
--- NOTE | 2020-02-28 10:27 | NUR ---
Nutrition: Once hemodynamically stable, rec initiate tube feeding of Jevity 1.5 at 60 mL/hr (pts usual regimen). Add 200-250 mL H20 flushes q 4 hrs with 1 packet beneprotein powder in each flush. Meets 100-105% of needs.
--- NOTE | 2020-02-28 11:15 | NUR ---
WOUND CONSULT; LIMITED ASSESSMENT FROM PHOTOS PER COVID RESTRICTIONS. THERE IS A WOUND THAT PRESENTS IN A LINEAR PRESENTATION. CASANDRA A SHEARING INJURY HAS EVOLVED INTO A PRESSURE WOUND. I CANNOT CLEARLY VISULAIZE THE WOUND BED COMPLETLY TO DETERMINE THE STAGE FROM PICTURES. NO ERYTHEMA. NO REPORTS OF ODOR. RECOMMENDATIONS; 1-ZGUARD,COVER WITH A SACRAL FOAM. 2-TURN Q2H DISCUSSED WITH DAVY
--- NOTE | 2020-02-28 13:17 | NUR ---
Case opened to follow for support and dc planning. Pt is currently in ICU for severe sepsis. 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 Pt's Charisse is involved and has spoken with the attending. Pt is a DNR. He has hx of CVA and is total care at the facility. He has a peg tube for enteral feedings and requires a lift for transfers out of bed. Palliative care consult pending. Nursing reports spouse updated via phone. [facility] admissions liason updated and they are faxing a copy of the pt's facesheet, DPOA and adv directive as it did not come with the pt. The facility is holding his bed. Covid antigen negative and PCR test pending therefore the pt is still in enhanced ISO.
--- NOTE | 2020-02-28 13:19 | NUR ---
FAXED CLINICAL UPDATE TO [facility] RECEIVED CONFIRMATION AND LEFT MSG WITH DRAGAN IN ADM.
--- NOTE | 2020-02-28 20:11 | NUR ---
ASSUMED CARE OF PT AT 0700. PT AWAKE BUT NOT RESPONDING TO ANY QUESTIONS. BP LOW AIRPORT SCREENER ON UNIT LEVO STARTED. HR 140's BOLUS OF AMNIO GIVEN WITH LITTLE HELP. METOPROLOL 5MG GIVEN WITH GOOD RELEIF. PETERS TO DD. IVF INFUSING PER ORDER. PT DOES NOT APPER TO BE IN ANY PAIN. SPOKE WITH PT TO UPDATE PB CARE, PT NOT PROGRESSING TOWRADS POC GOALS.
--- NOTE | 2020-02-28 23:46 | NUR ---
2300 UPDATED SAMANTHA ON PATIEN STATUS. COMFORT CARE, VS, MENTAL STATUS, AND ORDERS. LISTENED TO TRY TO DECIDE WETHER TO COME IN IF VITAL SIGNS START TO DECLINE. STATES SHE WAS ABLE TO SEE HIM IN ER LAST NOC TO SAY GOOD BYS. 10 MINUTES FROM HOSPITAL. WILL CALL IF VS START TO DECLINE AND SHE WILL DECIDE THEN TO COME IN OR NOT. SPOKE WITH 13 MINUTES. REASSURED AND ENCOURAGED TO CALL ANYTIME DURING NOC FOR UPDATE DESIRED. 2340 INFORMED PATIENT OF CALL TO AND MESSAGE FROM "I LOVE YOU". PATIENT SMILED AND FELL BACK TO SLEEP.
[2020-02-29] VITALS (34 sets, daily range): BP systolic 87–118; BP diastolic 47–75
--- NOTE | 2020-02-29 05:47 | NUR ---
SLEPT MOST OF SHIFT. NURSE ASKED IF SLEPT WELL AND PATIENT SMILED. TURNED FOR COMFORT. PERICARE COMPLETED. WORKING ON GOALS AND PLAN OF CARE FOR NOC. O2 SAT 88-97% ON 6L/NC. PATIENT COMFORT CARE. CONTINUE TO ASSES CLOSELY.
--- NOTE | 2020-02-29 07:51 | EKG ---
[facility] [place] [address] ELECTROCARDIOGRAM REPORT Name: MELIZA CHAU Room #: 238-P ADM IN M.R.#: [id number] Admission: 02/27/20 Attend Phys: Juancho Joseph MD Discharge: Date of : 57 Report #: [id number] THIS REPORT FOR: cc: Becka Zee MD, Joy E. 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 : 1955 Requested By: Karine Renee Order Number: [id number] MD: Won Hensley Measurements Intervals [place] Rate: 83 P: 62 IL: 131 QRS: -10 QRSD: 90 T: 196 QT: 420 QTc: 494 Interpretive Statements Sinus rhythm Atrial premature complex Consider right atrial enlargement Abnormal R-wave progression, early transition Nonspecific T abnormalities, diffuse leads Borderline prolonged QT interval Compared to ECG 02/28/2020 02:57:30 Sinus rhythm has replaced atrial fibrillation Electronically Signed On 02-29-2020 7:51:01 CDT by Won Hensley [email or web address] <ELECTRONICALLY SIGNED> By: Won Hensley MD, [facility] 02/29/20 0751 0745 Won Hensley MD, [facility] /EPI
--- NOTE | 2020-02-29 08:14 | EKG ---
[facility] [place] [address] ELECTROCARDIOGRAM REPORT Name: MELIZA CHAU Room #: 238-P ADM IN M.R.#: [id number] Admission: 02/27/20 Attend Phys: Juacnho Joseph MD Discharge: Date of : 57 Report #: [id number] THIS REPORT FOR: cc: Becka Zee MD, Joy E. MD Couchonnal, Luis F. 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 : 1955 Requested By: Rosemary Waller Order Number: [id number] MD: David Metcalf Measurements Intervals [place] Rate: 142 P: [place]: QRS: -38 QRSD: 87 T: 166 QT: 333 QTc: 512 Interpretive Statements Atrial fibrillation with rapid V-rate Paired ventricular premature complexes Left axis deviation Repolarization abnormality, prob rate related Compared to ECG 02/27/2020 13:47:08 Early repolarization now present Sinus tachycardia no longer present Electronically Signed On 02-29-2020 8:14:31 CDT by David Metcalf [email or web address] <ELECTRONICALLY SIGNED> By: David Metcalf MD 02/29/2014 6 6 David Metcalf MD /EPI
--- NOTE | 2020-02-29 21:37 | NUR ---
ATTEMPTED TO CALL REPORT X 2. WAS TOLD THAT RECEIVING DAVY JOSEPH IS IN ANOTHER ROOM AND WILL CALL BACK FOR REPORT SHORTLY.
[2020-03-01 05:19] VITALS: BP 109/68
--- NOTE | 2020-03-01 05:39 | NUR ---
PT TRANSFERRED FROM ICU THIS SHIFT. ALERT WITH HX OF EXPRESSIVE APHASIA. PT ABLE TO NOD HEAD FOR YES OR NO QUESTION. ON COMFORT CARE. REPOSITIONED FOR COMFORT. FOLLEY INTACT. PLUS 1 EDEMA NOTED ON RT HAND DUE TO HX OF CVA. ON 2L OF O2 AND SATS 97%. FALL PREC IN PLACE AND WILL CONT TO MONITOR
[2020-03-01 08:15] VITALS: BP 112/73
--- NOTE | 2020-03-01 09:22 | NUR ---
Chart reviewed and pt on comfort measures. Will defer further nutrition reassessment at this time
--- NOTE | 2020-03-01 12:37 | NUR ---
JANET reviewed chart and spoke with nursing and attending physician. Pt was transferred to from ICU. Pt is in Enhanced Isolation to r/o COVID-19. Awaiting repeat results at this time. Pt is on comfort care measures. Palliative care physician discussed plan of care with pt's , who is agreeable with referral to [facility]. JANET spoke with pt's via phone. Introduced role of SW. Lengthy discussion with pt's regarding hospice house referral and pt's course of medical care since his CVA. Pt has been to multiple healthcare facilities and pt/family were all hoping for pt's condition to improve. Pt's tearful and states that his quality of life is important to her and she wants him to be comfortable and not struggle any longer. Pt is a DNR. Pt's is hoping to be able to see pt once pt is transferred off of , or when he goes to the hospice house. JANET faxed referral to Hospice and notified liaison, Gayle, of new referral. Awaiting input from the hospice house at this time. JANET is following to assist as needed with discharge planning.
[2020-03-01 15:29] VITALS: BP 101/49
--- NOTE | 2020-03-01 18:15 | NUR ---
PT ON COMFORT MEASURES. IN NO APPARENT DISTRESS. ABLE TO NOD YES OR NO TO SIMPLE QUESTIONS. VITALS STABLE. ON 2LNC. COCCYX DRESSING CHANGED PER ORDER. SPOKE WITH OVER PHONE REGARDING PLAN OF CARE. 2ND COVID TEST STILL PENDING.
[2020-03-01 19:55] VITALS: BP 128/72
[2020-03-02 09:00] VITALS: BP 114/56
[2020-03-02 09:32] VITALS: BP 114/56
--- NOTE | 2020-03-02 16:01 | NUR ---
PT A&O TO SELF AND SITUATION. IV INTACT IN L AC AND L IJ. PT IS COMFORT CARE AND IS WAITING FOR COVID TEST TO RETURN NEG. [facility] ARE FOR PT TO TRANSFER TO HOSPICE. SPOKE TO FRANK FOR UPDATES TODAY. PT IS ABLE TO NOD HEAD THAT HE IS NOT IN PAIN. ORAL CARE GIVEN. CALL LIGHT W/I REACH, BED ALARM ON.
--- NOTE | 2020-03-02 18:40 | NUR ---
SAMANTHA PT'S SPOUSE CALLED FOR A SECOND UPDATE TODAY AND ASKED AGUSTIN HER SPOUSE WAS DOING, I TOLD HER HE WAS ALERT AND RESPONDING. SHE DOES NOT WANT PT NOT TO HAVE NUTRITION. PT STATES SHE SPOKE WITH AND THAT SHE DOES NOT WANT HIM ON COMFORT CARE IF HE IS ALERT THAT IT WOULD BE LIKE HIM BEING "EUTHANIZED". DR. ANDINO NOTIFIED AND HAS ORDERED PPN FOR NUTRTION.
--- NOTE | 2020-03-03 04:37 | NUR ---
VSS-AFEBRILE. AWAKE AND ABLE TO NOD HEAD YES AND NO TO QUESTIONS. EARLY IN SHIFT, APPEARED RESTLESS AND KEPT PULLING OFF O2 TUBING. WINCED AND FROWNED WHEN ROLLED SIDE TO SIDE FOR POSITIONING, AND NODDED YES WHEN ASKED IF HAVING PAIN. MEDICATED TWICE WITH IV MORPHINE, AND WAS CALM AQND COMFORTABLE THE REST OF SHIFT. SACRAL AND COCCYX DRESSINGS DRY AND INTACT, POSITIONED OF BUTTOCKS WITH PILLOWS ALL SHIFT. RIGHT NECK IJ LINE FLUSHES AND DRAWS WELL, SECURED FOR EXTRA SAFETY PRECAUTIONS. FALL PRECAUTIONS IN PLACE, CALL LIGHT WITHIN REACH.
--- NOTE | 2020-03-03 18:36 | NUR ---
PT A&O TO SELF/ SITUATION. L IJ INTACT, L AC PIV INTACT. SPOKE TO ERICK PEACOCK TODAY REGAURDING RETURNING TO [facility]. PLANS ARE FOR PT TO RETURN [facility] WITH HOSPICE. TUBE FEEDING JEVITY 1.5 STARTED AT 60 ML/HR WITH WAATER BOLUS OF 200 EVERY 4 HRS IT WAS AT FACILITY. PT IS ALERT/ AWAKE TODAY. CALL LIGHT W/I REACH, BED ALARM ON.
[2020-03-03 19:27] VITALS: BP 112/69
--- NOTE | 2020-03-04 07:30 | NUR ---
Pt. has been repositioned prn. He is aphasic , nods to yes/no questions. No respiratory distress and maintaining O2 sat greater than 90% on 2L/NC. Tolerating tube feeding well with no gastric residual. Afebrile , cont. on isolation pending COVID results.
[2020-03-04 08:10] VITALS: BP 109/66
--- NOTE | 2020-03-04 11:49 | NUR ---
JANET reviewed chart and spoke with nursing and attending physician. Pt had been accepted to [facility] on Wednesday, 03/01. They did not have any beds available on that day for pt to transfer. Pt remains in Enhanced Isolation to r/o COVID-19. Per nursing, pt's has requested pt return to [facility] with hospice. Pt's is wanting pt to continue with tube feeding. JANET spoke with Gayle at [facility] who states that pt are able to be admitted onto hospice or to the hospice house on tube feeding. At some point, the tube feeding will be stopped when pt is unable to tolerate the tube feeding. [facility] is able to see pts at [facility]. JANET spoke with Noreen at [facility] who states that they are allowing hospice in to see their residents. Pt would be able to return on hospice. Pt to be transferred to room 453 soon. JANET spoke with pt's , Charisse, via phone to provide update and discuss plan. Pt's states that she has been told that pt is doing better and she does not feel comfortable stopping artificial hydration/nutrition at this time. Pt's will visit pt this afternoon. She has not seen him since September. Pt's states that after she is able to see pt and discuss with family, then she will decide plan of care. 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 JANET updated attending physician. JANET is following to assist as needed with discharge planning.
--- NOTE | 2020-03-04 12:13 | NUR ---
PT HAS NEGATIVE COVID TEST FOR 3 TIMES , PT DOES NOT HAVE SOB AND FEVER , SO PT'S COVID ISOLATION HAS DC PER ORDER.
--- NOTE | 2020-03-04 12:15 | NUR ---
PT OPENS HIS EYES, AND HE CAN FOLOOW COMMANDS, BUT PT IS UNVERBAL, PT IS CONTINUING O2 2L/MIN/NC, PT'S VS AND O2SAT ARE STABLE, PT'S TUBE FEEDING HAS CHANGED TO GLUCERNAL TO 70ML/HR , PT IS TOLERATVE TUBE FEEDING, PT IS GOING TO TRANSFER TO M/S FLOOR, PT IS ON COMFORT CARE , RN HAS UPDATED PT'S INFORMATION TO PT'S .
--- NOTE | 2020-03-04 14:34 | NUR ---
RN HAS GIVING PT'S REPORT TO 4W RN , RN SENT PT TO 4W ROOM 453 AT 1420PM , RN HAS NOTIFIED PT'S ABOUT PT TO ROOM 453.
[2020-03-04 14:55] VITALS: BP 127/99
--- NOTE | 2020-03-04 19:40 | NUR ---
PT ARRIVED ON FLOOR AROUND 1500 FROM 3. PT IS ALERT, NONVERBAL S/P STROKE COUPLE YEARS AGO WITH RIGHT SIDED WEAKNESS, APHASIS/DYSPHAGIA. APPEARS TO ANSWER YES AND NO QUESTIONS. HE IS ON 3L O2. PETERS IN PLACE. PEG WITH FEEDS RUNNING, TOLERATING. PIV AND IJ IN PLACE. PT IS Q2 TURNS/TOTAL CARE. WAS AT BEDISIDE. WILL CONTINUE TO MONITOR
[2020-03-04 20:20] VITALS: BP 112/78
--- NOTE | 2020-03-04 20:20 | NUR ---
PATIENT TRANSFERRED FROM [address] [place] [address], REPORT RECEIVED FROM ANDRESSA/DAVY. PATIENT ALERT X 1, CONFUSION NOTED, WILL HAVE A LUMBAR PUNCTURE TOMORROW. WILL REPORT OFF TO THE NIGHTSHIFT.
--- NOTE | 2020-03-05 04:03 | NUR ---
ASSUMED PT CARE AT 1911. PT IS ALERT TO SELF AND SITUATION. PT NODS TO COMMUNICATE. AT MOMENTS HIS RESPONSE WAS NOT COHERENT. PT BLOOD SUGAR IS 267, HE REFUSED HIS MIDNIGHT INSULIN. I HUNG ANOTHER BOTTLE OF TUBE FEED (GLUCERNA 1.2). PT REFUSED Q2 TURNS. I EVENTUALLY TURNED HIM TO PREVENT SKIN BREAKDOWN. WILL CONTINUE TO MONITOR PT.
[2020-03-05 07:34] VITALS: BP 123/79
--- NOTE | 2020-03-05 08:52 | HC ---
[facility] [place] [address] CONSULTATION Name: MELIZA CHAU Room #: 453-P [facility] IN M.R.#: [id number] Admission: 02/27/20 Attend Phys: Juancho Joseph MD Discharge: Date of : 57 Report #: [id number] THIS REPORT FOR: cc: Becka Zee MD,Td Celaya MD, MD ~ CC: Becka Joseph DATE OF SERVICE: 02/29/2020 WOUND CARE CONSULTATION PERSONAL PHYSICIAN: Becka Zee M.D. CHIEF COMPLAINT: Coccygeal decubitus ulcer. HISTORY OF PRESENT ILLNESS: This is a 65-year-old white male with a history of CVA, hemiparesis and aphasia, who was brought to the Emergency Department with increasing respiratory distress. COVID-19 testing is pending. Upon admission, the patient was noted to have a coccygeal decubitus ulcer and we have been asked to follow the patient for this at this time. The patient himself is unable to give any history. Per old records, family is considering comfort care only given the patient's what appears to be a significant decline in his physical health over the past 6 months. Nursing staff deny any other associated wound. PAST MEDICAL HISTORY: Previous CVA with associated aphasia, dysphagia, PEG tube placement, hypertension, atrial fibrillation, intracranial hemorrhage. CURRENT MEDICATIONS: Multiple, I reviewed the patient's medication list. DRUG ALLERGIES: PROTON PUMP INHIBITORS. SOCIAL HISTORY: The patient resides in a snf. FAMILY HISTORY AND REVIEW OF SYSTEMS: Unobtainable because of the patient's medical condition. PHYSICAL EXAMINATION: VITAL SIGNS: The patient is afebrile, pulse 91, respirations 20, BP 112/73. GENERAL: This is an alert and oriented x 1 person, but not place or time, white male who appears to be chronically ill. HEENT: Normocephalic, atraumatic. Mucous membranes are dry. Pupils are round. Sclerae white. NECK: Supple, nontender. LUNGS: Diminished breath sounds heard throughout. Occasional scattered wheeze. [facility] [address] [place] [address] CONSULTATION Name: MELIZA CHAU Room #: 453-P ADM IN M.R.#: [id number] Admission: 02/27/20 Attend Phys: Juancho Joseph MD Discharge: Date of : 57 Report #: [id number] HEART: Regular. ABDOMEN: Soft, nontender with PEG tube in place. EXTREMITIES: Evaluation of sacrococcygeal region reveals a stage 3 decubitus ulcer in the coccygeal and left buttock region. There is a mix of granulation and slough within the ulcer itself. Periwound is somewhat macerated without any sign of overt infection. Some moderate amount of serosanguineous drainage noted without significant odor. EXTREMITIES: The patient has decreased, limited movement of both lower extremities. Bilateral heels are intact. NEUROLOGIC: The patient has previous CVA with aphasia. LABORATORY DATA: White count 13.6, hemoglobin 14.1, BUN 45, creatinine 1.5, potassium is 2.6. Albumin is 2.6. IMPRESSION: 1. Stage 3 decubitus ulcer, left buttock and coccygeal region, appeared to be chronic. 2. Hypertension. 3. Atrial fibrillation. 4. History of seizure disorder. 5. Chronic respiratory failure. 6. Previous cerebrovascular accident with hemiparesis and generalized debility. 7. Aphasia. 8. Moderate protein-calorie malnutrition with an albumin of 2.6. PLAN: We will start Z-Guard and sacral foam to the decubitus ulcers daily p.r.n. We will put the patient on a low air loss mattress, having turned every 2 hours. We will try to attempt to maximize the patient's protein supplementation via his PEG tube for healing. A consult has already been placed to Dr. Loaiza for possible comfort care measures only. Given the fact that the patient's overall prognosis is very poor, it is unlikely that these wounds will heal, and I totally agree with the palliative care and comfort care consult. We will continue to follow the patient. I appreciate the ability to consult. <ELECTRONICALLY SIGNED> By: Td Novoa MD 03/05/20 0852 [id number] Td Novoa MD /nt
--- NOTE | 2020-03-05 11:49 | NUR ---
Received awake on bed. Vital signs stable. On room air. Non verbal- history of stroke. On PEG feeding, glucerna at 70cc/hr, infusing welll thru PEG; H2O flushes every 4 hours, 200cc. On blood sugar monitoring every 6 hours; taken and recorded accordingly, with sliding scale insulin ordered. With ferraro in place- output measured and recorded accordingly. Incontinent of bowel, checked frequently and changed as needed. On MS, not on telemetry; no complaints of chest pain, crushing sensation and heaviness. Falls bundle in place. With triple lumen IJ- dressing C/D/I. Turned on his sides.
[2020-03-05] MEDS ORDERED: IPRAT-ALBUT 0.5-3 ML INH (13:58)
[2020-03-05] MEDS ORDERED: DULCOLAX10 MG RECTAL (13:58)
--- NOTE | 2020-03-05 15:29 | NUR ---
DISCHARGE NOTE: JANET reviewed chart and spoke with nursing and attending physician. Pt is medically stable to return to [facility] with hospice today. JANET spoke with Roopa and Noreen at the facility who confirmed they are able to accept pt back today. [facility] will arrange hospice when pt returns. Roopa has spoken with pt's . [facility] will allow two visitors at a time, when their residents are on hospice. JANET updated Gayle at [facility]. Received discharge orders this afternoon. Faxed to facility and notified Noreen. Ambulance transportation scheduled through [facility] at [phone]. JANET spoke with pt's via phone to provide udpate and discuss discharge plan. Pt's is aware and agreeable with discharge plan. Multiple questions from pt's answered. Pt's was unaware that pt has Medicare as primary insurance. Chart copy requested. Nursing to call report ([phone]). No additional SW needs identified at this time, but is available to assist should needs arise.
[2020-03-05 16:50] VITALS: BP 128/91
== END 2020-03-05 19:00 | disposition hospice, home (50) | DRG 871 ==
LOC: ER 13:28 → EROBS 17:24 → ICU 17:24 → 3W 02-29 23:25 → 4W 03-04 14:08
PROVIDERS: Emergency Medicine; ADMIT Hospitalist; ATTEND Hospitalist
PROC: 02HV33Z Insertion of Infusion Device into Superior Vena Cava, Percutaneous Approach (ICD-10-PCS; principal; 2020-02-27)
DX: A41.9 Sepsis, unspecified organism (principal); L89.323 Pressure ulcer of left buttock, stage 3; L89.153 Pressure ulcer of sacral region, stage 3; J18.9 Pneumonia, unspecified organism; J96.21 Acute and chronic respiratory failure with hypoxia; I69.354 Hemiplegia and hemiparesis following cerebral infarction affecting left non-dominant side; E87.0 Hyperosmolality and hypernatremia; E44.0 Moderate protein-calorie malnutrition; I48.20 Chronic atrial fibrillation, unspecified; R47.01 Aphasia; F32.9 Major depressive disorder, single episode, unspecified; I10 Essential (primary) hypertension; I48.0 Paroxysmal atrial fibrillation; G40.909 Epilepsy, unspecified, not intractable, without status epilepticus; K21.9 Gastro-esophageal reflux disease without esophagitis; I95.9 Hypotension, unspecified; E11.65 Type 2 diabetes mellitus with hyperglycemia; Z51.5 Encounter for palliative care; Z66 Do not resuscitate; Z20.828 Contact with and (suspected) exposure to other viral communicable diseases; I69.320 Aphasia following cerebral infarction; Z86.711 Personal history of pulmonary embolism; Z86.718 Personal history of other venous thrombosis and embolism; Z68.29 Body mass index [BMI] 29.0-29.9, adult
CPT/HCPCS: 10040; 10078; 10080